=== PATIENT | male | born 1995 | race Caucasian/White ===

== ENCOUNTER 2019-10-02 11:09 | Emergency (ER) | payer OTHER ==
[2019-10-02 13:10] VITALS: BP 127/85
--- NOTE | 2019-10-02 13:36 | UC ---
Throat Pain/Nasal Kevin HPI - HPI Summary HPI Summary: generally feeling ill, woke up with headache, achi back and neck, sorethroat - History of Current Complaint Chief Complaint: UCGeneralIllness Stated Complaint: SORE THROAT Time Seen by Provider: 10/02/19 13:34 Hx Obtained From: Patient Onset/Duration: Sudden Onset, Lasting Hours Severity: Moderate Pain Intensity: 6 Associated Signs & Symptoms: Positive: Dysphagia, Sinus Discomfort, Nasal Discharge, Fever - Allergies/Home Medications Allergies/Adverse Reactions: Allergies Allergy/AdvReac Type Severity Reaction Status Date / Time No Known Allergies Allergy Verified 10/02/19 13:03 Home Medications: Home Medications NK [No Home Medications Reported] 10/02/19 [History Confirmed 10/02/19] PMH/Surg Hx/FS Hx/Imm Hx Previously Healthy: Yes - Surgical History Surgical History: None - Family History Known Family History: Positive: Hypertension - Social History Occupation: Student Alcohol Use: Weekly Substance Use Type: None Smoking Status (MU): Never Smoked Tobacco Review of Systems All Other Systems Reviewed And Are Negative: Yes Constitutional: Positive: Fever, Fatigue ENT: Positive: Sore Throat Respiratory: Positive: Cough Musculoskeletal: Positive: Myalgia Neurological/Mental Status: Positive: Headache Is Patient Immunocompromised?: No Physical Exam Triage Information Reviewed: Yes Appearance: Well-Nourished, Ill-Appearing, Pain Distress Vital Signs: Initial Vital Signs Temp 100.0 F 10/02/19 13:04 Pulse 96 10/02/19 13:04 Resp 20 10/02/19 13:04 BP 127/85 10/02/19 13:04 Pulse Ox 97 10/02/19 13:04 Vital Signs Reviewed: Yes Eye Exam: Normal ENT: Positive: Pharyngeal erythema, TM bulging Dental Exam: Normal Neck exam: Normal Respiratory: Positive: Chest non-tender, Lungs clear, Normal breath sounds Cardiovascular Exam: Normal Cardiovascular: Positive: RRR, No Murmur, Pulses Normal Abdominal Exam: Normal Abdomen Description: Positive: Nontender, No Organomegaly, Soft Bowel Sounds: Positive: Present Musculoskeletal Exam: Normal Neurological Exam: Normal Psychological Exam: Normal Skin Exam: Normal Throat Pain/Nasal Course/Dx - Course Course Of Treatment: hx obtained, exam performed, meds reviewed, rapid flu obtained and was negative , patient states symptoms have improved over the last few days - Differential Dx/Diagnosis Differential Diagnosis/HQI/PQRI: Influenza, Pharyngitis, Sinusitis Provider Diagnosis: Viral syndrome Discharge ED - Sign-Out/Discharge Documenting (check all that apply): Patient Departure All imaging exams completed and their final reports reviewed: No Studies - Discharge Plan Condition: Stable Disposition: HOME Patient Education Materials: Viral Syndrome (ED) Referrals: No Primary Care Phys,NOPCP [Primary Care Provider] - Additional Instructions: 1. continue to get rest, increase fluids and use tylenol and ibuprofen as needed. 2. Your flu test was negative 3. FOllow up if symptoms have not improving in 7-10 days or become severe. - Billing Disposition and Condition Condition: STABLE Disposition: Home
[2019-10-02 13:56] LABS: Influenza A Molecular Negative (Negative); Influenza B Molecular Negative (Negative)
== END 2019-10-02 14:03 | disposition home or self-care (01) ==
LOC: UCCORT 11:09
DX: B34.9 Viral infection, unspecified (principal); J02.9 Acute pharyngitis, unspecified; R51 Headache; M79.10 Myalgia, unspecified site; R05 Cough
CPT/HCPCS: 99201; G0463